=== PATIENT | male | born 1960 | race Two or more races ===

== ENCOUNTER 2022-06-20 07:52 | Day surgery (SDC) | payer OTHER ==
[~2022-06-20 07:52] MED LIST: AVAPRO300 MG PO; CYMBALTA60 MG PO; METFORMIN HCL500 M3 PO; SPIRONOLACTONE25 MG PO; ZOCOR20 MG PO
[2022-06-20] MEDS ORDERED: PERCOCET 5-3251 EACH PO (11:46)
== END 2022-06-20 16:45 | disposition home or self-care (01) ==
LOC: CIR.AMB 07:52
PROVIDERS: ATTEND Surgery
DX: E21.0 Primary hyperparathyroidism (principal); Z91.013 Allergy to seafood; I10 Essential (primary) hypertension; E11.40 Type 2 diabetes mellitus with diabetic neuropathy, unspecified; Z79.84 Long term (current) use of oral hypoglycemic drugs